=== PATIENT | male | born 1950 | race Caucasian/White ===

== ENCOUNTER → 2016-10-18 | Outpatient (CLI) | payer OTHER ==
--- NOTE | 2016-10-18 09:09 | Diagnostic Imaging Report ---
Ultrasound abdominal complete Doppler. INDICATION : Hypertension. Spectral and color-flow imaging of the renal arteries and aorta were performed. There are no prior studies available for comparison. Both kidneys were identified. The right kidney measured 11.1 x 6.4 x 5.4 cm. The left kidney is estimated to be 11.7 x 6.8 x 5.8 cm. There is no evidence for a solid renal mass or for hydronephrosis of either kidney. The renal cortices are normal in thickness and echogenicity. There is no shadowing from the kidneys to suggest nephrolithiasis. The renal arteries were partially obscured by bowel gas. The proximal portions of the renal arteries were not visualized. The mid and distal segments of the renal arteries, however, show no sign of a hemodynamically significant stenosis. IMPRESSION: 1. There is no evidence for a solid renal mass or for an acute abnormality of either kidney. 2. The renal arteries, where visualized, show no evidence for a hemodynamically significant stenosis. 3. If clinical concern regarding an underlying abnormality persists and further imaging of the renal arteries is desired, then CTA of the aorta with renal arteries would be recommended. Dictated by: Dictated on workstation # [id number]
== END ==
LOC: RAD 07:21
PROVIDERS: ATTEND Internal Medicine Endocrinology, Diabetes & Metabolism
DX: I10 Essential (primary) hypertension (principal)
CPT/HCPCS: 93975

== ENCOUNTER → 2016-11-01 | Outpatient (CLI) | payer OTHER ==
--- NOTE | 2016-11-01 07:52 | Diagnostic Imaging Report ---
INDICATION: Congestive heart failure, history of hypertension and diabetes. TECHNIQUE: Grayscale sonographic images of the abdominal aorta. CORRELATION STUDY: None FINDINGS: Abdominal Aorta Proximal: Obscured by overlying bowel gas and not visualized. Mid: 1.1 x 1.8 cm Distal: 1.5 x 1.8 cm Common Iliac Arteries Proximal portions of the common iliac arteries are partially obscured by overlying bowel gas. Right MACK: 1.0 x 0.9 cm Left MACK: 0.9 x 1.0 cm IMPRESSION: 1. Negative for abdominal aortic aneurysm. The proximal portions of the abdominal aorta however are not able to be visualized. Dictated by: Dictated on workstation # [id number]
== END ==
LOC: RAD 07:09
PROVIDERS: ATTEND Internal Medicine Endocrinology, Diabetes & Metabolism
DX: I10 Essential (primary) hypertension; I50.9 Heart failure, unspecified; E11.65 Type 2 diabetes mellitus with hyperglycemia
CPT/HCPCS: 76775